=== PATIENT | female | born 1950 | race Two or more races ===

== ENCOUNTER 2017-04-09 09:50 | Emergency (ER) | payer OTHER ==
[2017-04-09 10:07] VITALS: TEMP 98.4
--- NOTE | 2017-04-09 11:28 | EDPHY ---
H & P Stated Complaint: fall while gardening yesterday, multiple injuries Time Seen by Provider: 04/09/17 10:57 HPI/ROS: CHIEF COMPLAINT: mechanical fall HISTORY OF PRESENT ILLNESS: 66-year-old female history of daily warfarin anticoagulation secondary to history of pulmonary emboli, known history of thoracic aortic aneurysm, arrives via private vehicle stating that yesterday afternoon while she was working in her garden she tripped on her sprinkler causing her to start moving forward and subsequently fall onto the concrete impacting the left side of her face, the left hand and impacting her right ribs. No loss of consciousness. No headache. No nausea or vomiting. She did not seek medical attention at that time. This morning she woke with left hand pain as her primary complaint as well as right rib pain reproducible with palpation and deep inspiration. She denies abdominal pain or trauma. Denies straddle injury. Denies alcohol or drug use. Denies midline C-spine pain. Denies peripheral paresthesia, weakness, numbness. Denies diplopia. PRIMARY CARE PROVIDER: Dr. Elisa guerrier REVIEW OF SYSTEMS: A ten point review of systems was performed and is negative with the exception of the items mentioned in the HPI PAST MEDICAL/SURGICAL HISTORY: Daily warfarin anticoagulation. History aortic aneurysm. History of pulmonary emboli. SOCIAL HISTORY: denies alcohol use at time of incident PHYSICAL EXAM 1) GENERAL: Well-developed, well-nourished, alert and oriented. Appears to be in no acute distress. Answering questions appropriately. 2) HEAD: Normocephalic, abrasion to left temporal frontal region 3) HEENT: Pupils equal, round, reactive to light bilaterally. Abrasion to left zygomatic arch. Negative Horners. Nasopharynx, oropharynx, clear. No deformity or angulation of nose. No septal hematoma. No rhinorrhea. No oral trauma. Ears bilaterally with normal tympanic membranes. No hemotympanum. No fluid or blood in the external auditory canal. No raccoon eyes. No Juan sign. Teeth are normally aligned with no gross malocclusion, TMJ bilaterally nontender, facial bones nontender including the zygomatic arch, maxilla mandible. 4) NECK: No cervical collar is on. Posterior cervical spine is nontender, no stepoff, no effusion. Full range of motion which does not elicit any midline cervical spine pain, no posterior midline tenderness, no step-off. 5) LUNGS: Clear to auscultation bilaterally, no wheezes, no rhonchi, no retractions. No obvious signs of trauma. Tender to palpation right anterior axillary line approximately 7th rib. No flaring, no grunting. Moving symmetrically. No crepitus. 6) HEART: Regular rate and rhythm, 7) ABDOMEN: No guarding, no rebound, no focal tenderness, no peritoneal signs, no signs of trauma, no ecchymosis Specific attention paid to the right upper quadrant I am unable to elicit any abdominal pain to the right upper or left upper quadrant. 8) MUSCULOSKELETAL: Moving all extremities, no focal areas of tenderness, no obvious trauma. 9) BACK: No midline vertebral tenderness, no fluctuance, no step-off, no obvious trauma, no visual or palpable abnormality. 10) SKIN: No laceration. DIFFERENTIAL DIAGNOSIS: [ Not necessarily in any particular order, my differential diagnosis includes, but is not limited to, concussion, skull fracture, intraparenchymal contusion, subarachnoid, subdural and epidural hematoma. The patient understands that this diagnosis is provisional and can never be 100% accurate. - Personal History Current Tetanus/Diphtheria Vaccine: Yes Current Tetanus Diphtheria and Acellular Pertussis (TDAP): Yes Tetanus Vaccine Date: < 10 years - Medical/Surgical History Hx Asthma: No Hx Chronic Respiratory Disease: Yes Hx Diabetes: No Hx Cardiac Disease: Yes Hx Renal Disease: No Hx Cirrhosis: No Hx Alcoholism: No Hx HIV/AIDS: No Hx Splenectomy or Spleen Trauma: No Other PMH: PE, cushings, Ascending AA, - Social History Smoking Status: Never smoked Constitutional: Initial Vital Signs Temperature (C) 36.9 C 04/09/17 10:04 Heart Rate 62 04/09/17 10:04 Respiratory Rate 18 04/09/17 10:04 Blood Pressure 134/76 H 04/09/17 10:04 O2 Sat (%) 96 04/09/17 10:04 O2 Delivery Mode Room Air Allergies/Adverse Reactions: codeine [Codeine] Allergy (Verified 04/09/17 10:03) Vomiting Home Medications: Medication Instructions Recorded Warfarin Sodium [Jantoven] 5 mg PO 11/29/12 Medical Decision Making - Diagnostics Imaging Results: Imaging Impressions Chest CT 04/09/17 12:07 Impression: 1. Stable ascending aortic aneurysm measuring 4.6 cm without dissection. 2. No pneumothorax, thoracic hematoma, or pleural effusion. 3. Linear scarring in the left lower lobe. 4. No acute pulmonary disease. Findings and recommendations discussed with Emergency Department physician, Alton Marin PA-C at 1300 hours on April 09. Final report concurs with initial preliminary interpretation. Head CT 04/09/17 12:07 Impression: 1. No epidural or subdural hematoma. 2. 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 3. No definite skull fracture. Findings and recommendations discussed with Emergency Department physician, Alton Marin PA-C at 1258 hours on April 09, 2017. Final report concurs with initial preliminary interpretation. Cervical Spine CT 04/09/17 12:08 Impression: 1. No definite fracture. 2. Moderate degenerative disk disease at C5-C6, resulting in mild central canal stenosis and mild to moderate bilateral neural foraminal stenosis. 3. C4-C5 right facet arthropathy, resulting in mild to moderate right neural foraminal stenosis. 4. If there is persistent pain or neurological deficit, recommend MR cervical spine and consider flexion and extension views, if clinically indicated. Findings and recommendations discussed with Emergency Department physician, Alton Marin PA-C at 1303 hours on April 09, 2017. Final report concurs with initial preliminary interpretation. Hand X-Ray 04/09/17 12:34 Impression: Negative for fracture. Images reviewed by myself Procedures: Procedure: Splint A Velcro volar splint was applied by ER device repair technician. After application of the splint I returned and re-examined the patient. The splint was adequately immobilizing the joint and distal to the splint the patient's circulation and sensation were intact. Patient shows no signs of compartment syndrome. Was given orthopedic precautions. ED Course/Re-evaluation: 11:25 a.m.: Head CT ordered in this patient for trauma for the following indication: anticoagulated and presents visible head injury. Also obtain imaging of the cervical spine and chest. 1:40 p.m.: Patient re-evaluated with serial exams. Discussed her negative imaging results. She is answering questions appropriately. She feels comfortable being discharged. Recommended splinting and follow up with Orthopedics for hand injury, given the name of on-call hand surgeon Dr. Nicho Shari. Usual customary head injury precautions instructions provided. She is also noted to have a superficial laceration to her 5th digit on the left. This is from yesterday evening and I recommended healing via secondary intention. Given incentive spirometer. She declines opiates. Recommended Tylenol for pain control. All questions and concerns addressed by myself. She feels comfortable being discharged. - Data Points Laboratory Results: 04/09/17 11:28 PT 19.9 SEC H SEC (12.0-15.0) INR 1.69 H (0.83-1.16) APTT 29.8 SEC SEC (23.0-38.0) Departure - Departure Disposition: Home, Routine, Self-Care Clinical Impression: Left hand pain, Rib pain on right side Head injury due to trauma Qualifiers: Encounter type: initial encounter Qualified Code(s): S09.90XA - Unspecified injury of head, initial encounter Condition: Good Instructions: Glycolic Acid (On the skin), Fall Prevention for Older Adults (ED ), Head Injury (ED), Hand Sprain (ED), Fall Prevention (ED), Rib Contusion (ED) Additional Instructions: ALTHOUGH THERE IS NO EVIDENCE OF SERIOUS HEAD INJURY AT THIS TIME, DELAYED SIGNS CAN APPEAR 24 TO 48 HOURS AFTER INJURY. WE RECOMMEND THAT YOU DESIGNATE A FRIEND OR FAMILY MEMBER TO OBSERVE YOU OVER THE NEXT FEW DAYS TO ENSURE THAT YOUR CONDITION IS PROGRESSING NORMALLY. PLEASE RETURN TO THE EMERGENCY DEPARTMENT (ED) IMMEDIATELY IF YOU HAVE INCREASED HEADACHE, PERSISTENT HEADACHE , VOMITING, WEAKNESS, CONFUSION OR VISUAL PROBLEMS. WE RECOMMEND THAT YOU DO NOT RESUME CONTACT SPORTS OR ACTIVITIES THAT TAKE COORDINATION OR BALANCE SUCH SKIING OR RIDING A BICYCLE UNTIL CLEARED TO DO SO BY YOUR DOCTOR OR BY A NEUROLOGIST. Referrals: Dahiana Vasquez MD [Primary Care Provider] - As per Instructions Nicho Mccarthy MD [Medical Doctor] - As per Instructions
[2017-04-09 11:46] LABS: INR 1.69 (0.83-1.16); PROTIME(PATIENT) 19.9 SEC (12.0-15.0)
[2017-04-09 11:47] LABS: APTT 29.8 SEC (23.0-38.0)
[2017-04-09] MEDS ORDERED: IOPAMIDOL (ISOVUE-300) 100 ML BTL ONE (12:13)
[2017-04-09] MEDS ORDERED: ACETAMINOPHEN 325 MG TAB ONE (13:28)
[2017-04-09 14:10] VITALS: BP 140/75; PULSE 75; RESP 18; O2SAT 96
== END 2017-04-09 14:16 | disposition home or self-care (01) ==
DX: S09.90XA Unspecified injury of head, initial encounter (principal); S29.9XXA Unspecified injury of thorax, initial encounter; S69.92XA Unspecified injury of left wrist, hand and finger(s), initial encounter; Z79.01 Long term (current) use of anticoagulants; W01.198A Fall on same level from slipping, tripping and stumbling with subsequent striking against other object, initial encounter; Y92.007 Garden or yard of unspecified non-institutional (private) residence as the place of occurrence of the external cause; Y99.8 Other external cause status; Y93.89 Activity, other specified
CPT/HCPCS: 70450; 71260; 72125; 73130; 99285; L3908; Q9967; 82947-QW

== ENCOUNTER → 2018-11-28 | Outpatient (CLI) | payer OTHER ==
[~2018-11-28] MED LIST: IOPAMIDOL (ISOVUE 370) 100 ML BTL IV ONE
== END ==
LOC: FIMAGING 09:19
PROVIDERS: ATTEND Internal Medicine
DX: N32.9 Bladder disorder, unspecified (principal); N28.1 Cyst of kidney, acquired; E24.9 Cushing's syndrome, unspecified; I71.2 Thoracic aortic aneurysm, without rupture; I35.0 Nonrheumatic aortic (valve) stenosis; S32.020A Wedge compression fracture of second lumbar vertebra, initial encounter for closed fracture; S32.040A Wedge compression fracture of fourth lumbar vertebra, initial encounter for closed fracture; S32.050A Wedge compression fracture of fifth lumbar vertebra, initial encounter for closed fracture
CPT/HCPCS: 71260; 74177; Q9967; 82565-PO